=== PATIENT | female | born 1955 | race Caucasian/White ===

== ENCOUNTER 2019-10-28 04:17 | Emergency (ER) | payer MEDICARE, MEDICAID ==
[~2019-10-28] VITALS: Ht 154.9 cm; Wt 51.0 kg
[2019-10-28 04:51] LABS: CLARITY,URINE CLEAR (Clear); COLOR,URINE YELLOW (Yellow); GLUCOSE, URINE NEGATIVE (Neg); KETONES,URINE NEGATIVE (Neg); LEUKOCYTE ESTERASE ,URINE NEGATIVE (Neg); NITRITES, URINE NEGATIVE (Neg); OCCULT BLOOD,URINE NEGATIVE (Neg); PH,URINE 5.5 (4.8-8.0); PROTEIN,URINE NEGATIVE (Neg); UROBILINOGEN,URINE 0.2 E.U/dL (0.2-1.0)
[2019-10-28 04:52] LABS: UA COLLECTION TYPE CLN CATCH MIDSTREAM
[2019-10-28 05:36] VITALS: BP 140/56
[2019-10-28] MEDS ORDERED: PRED20TA PO (22:39)
[2019-10-28] MEDS ORDERED: ALBU6.7H9 INH (22:39)
== END 2019-10-28 05:39 | disposition home or self-care (01) ==
LOC: ER 04:18
DX: N39.0 Urinary tract infection, site not specified (principal); I10 Essential (primary) hypertension; I25.2 Old myocardial infarction; J44.9 Chronic obstructive pulmonary disease, unspecified; F17.200 Nicotine dependence, unspecified, uncomplicated; Z88.6 Allergy status to analgesic agent
CPT/HCPCS: 81003; 99283

== ENCOUNTER 2019-10-28 22:01 | Emergency (ER) | payer MEDICAID, MEDICARE ==
[~2019-10-28] VITALS: Ht 154.9 cm; Wt 59.1 kg
[2019-10-28 22:04] VITALS: BP 147/55
[2019-10-28] MEDS ORDERED: morphine 4 MG/ML inj SYRINge IV ONE (22:20)
[2019-10-28] MEDS ORDERED: predniSONE 20 mg tablet PO ONE (22:25)
[2019-10-28] MEDS ORDERED: ipratropium/albuterol 3ml nebule NEB ONE (22:25)
[2019-10-28] MEDS ORDERED: ALBU6.7H9 INH (22:39)
[2019-10-28] MEDS ORDERED: PRED20TA PO (22:39)
== END 2019-10-28 22:50 | disposition home or self-care (01) ==
LOC: ER 22:02
DX: J44.9 Chronic obstructive pulmonary disease, unspecified (principal); J32.9 Chronic sinusitis, unspecified; I10 Essential (primary) hypertension; I25.2 Old myocardial infarction; F17.200 Nicotine dependence, unspecified, uncomplicated; Z59.0 Homelessness; Z88.6 Allergy status to analgesic agent; Z79.899 Other long term (current) drug therapy
CPT/HCPCS: 94640; 99283; J7512; 94760

== ENCOUNTER 2019-10-31 13:46 | Emergency (ER) | payer MEDICARE, MEDICAID ==
[~2019-10-31] VITALS: Ht 154.9 cm; Wt 50.0 kg
[~2019-10-31 13:46] MED LIST: ALBU6.7H9 INH; PRED20TA PO
[2019-10-31 13:52] VITALS: BP 120/56
[2019-10-31] MEDS ORDERED: ibuprofen tablet 400 MG TABLET PO ONE (15:30)
[2019-10-31] MEDS ORDERED: ROSU40TA PO (16:10)
[2019-10-31] MEDS ORDERED: FURO-150 PO (16:10)
[2019-10-31] MEDS ORDERED: VALS80TA32 PO (16:10)
== END 2019-10-31 16:23 | disposition home or self-care (01) ==
LOC: ER 13:47
DX: J32.9 Chronic sinusitis, unspecified (principal); Z76.0 Encounter for issue of repeat prescription; I10 Essential (primary) hypertension; I25.2 Old myocardial infarction; J44.9 Chronic obstructive pulmonary disease, unspecified; Z98.890 Other specified postprocedural states; Z59.0 Homelessness; Z88.6 Allergy status to analgesic agent; Z79.899 Other long term (current) drug therapy
CPT/HCPCS: 99283